=== PATIENT | male | born 1960 | race American Indian/Alaskan Native ===

== ENCOUNTER 2016-10-16 02:25 | Emergency (ER) | payer SELFPAY ==
[~2016-10-16 02:25] MED LIST: ADRENALIN ONE
--- NOTE | 2016-10-16 02:44 | Emergency Department Report ---
HPI - General Time Seen by Provider: 10/16/16 02:42 - HPI HPI: This is a 55-year-old Afro-[place] male who presents to the emergency department via EMS from home and cardiac arrest. The patient was last seen awake and alive at about 1 AM. The call for EMS was at about 1:30 AM and EMS arrived around 1:45 AM to find the patient pulseless. There was no bystander CPR in progress. The patient was intubated, chest compressions were started and the patient was found to be in asystole. The patient arrived to [facility] about 2:15 AM. In the 30 minutes prior the patient received 4 rounds of epinephrine, 1 amp of sodium bicarbonate, and ACLS protocol. The patient was in asystole the entire time and arrived to the emergency department here in asystole and still pulseless. There is a past medical history of hypertension. ED Review of Systems ROS: Stated complaint: CARDIAC ARREST Other details as noted in HPI Comment: Unobtainable due to pts medical conditions Physical Exam - Physical Exam Physical Exam: GENERAL: Patient is ill-appearing and unresponsive. HEENT: Normocephalic. Pupils are fixed and dilated. ET tube and collar in place. NECK: Supple. Trachea is midline. CHEST/LUNGS: There are no spontaneous lung sounds. HEART/CARDIOVASCULAR: No spontaneous heart sounds. ABDOMEN: Abdomen is soft. SKIN: Skin is cool but dry. NEURO: Patient is unresponsive to verbal, tactile or painful stimuli and does not follow any commands. MUSCULOSKELETAL: There is no deformity. No spontaneous movement of the extremities. There was no palpable pulse to the radial or femoral regions. ED Medical Decision Making - Medical Decision Making 55-year-old male presents to the emergency department in cardiac arrest, intubated, pulseless and in asystole. He had already been asystolic and in cardiac arrest for at least 30 minutes prior to presentation. Patient arrived in the emergency department and chest compressions were continued immediately. He was placed on the monitor and found to be in asystole. He was given a dose of epinephrine. There were breath sounds bilaterally with auscultation with ET tube in place and bag valve ventilation. At the next pulse and rhythm check, the patient was still asystolic and pulseless. The patient was given a second dose of epinephrine. Another 3 minutes of ACLS protocol was done and a subsequent pulse and rhythm check was done and once again the patient was asystolic and pulseless. At this point, the patient had received a total of 7 epinephrine, 1 sodium HCO3, 45 minutes of ACLS protocol and there was no return of spontaneous circulation. I took the ultrasound and place it over the hard and there was no squeeze, movement or flutter. At this point the time of was called. - Differential Diagnosis cardiac arrest Critical Care Time: No Critical care attestation.: If time is entered above; I have spent that time in minutes in the direct care of this critically ill patient, excluding procedure time. ED Disposition Clinical Impression: Cardiac arrest Disposition: DC-20 Is pt being admited?: No Time of Disposition: 03:35
== END 2016-10-16 05:00 ==
LOC: ED 02:25
DX: I46.9 Cardiac arrest, cause unspecified (principal)
CPT/HCPCS: 31500; 92950; 99285; J0171